=== PATIENT | female | born 1970 | race Caucasian/White ===

== ENCOUNTER 2019-08-18 02:58 | Inpatient (IN) | payer OTHER ==
[~2019-08-18] VITALS: Ht 154.9 cm; Wt 54.0 kg
[2019-08-18 03:10] VITALS: BP_SYST 125
[2019-08-18 03:28] LABS: BILIRUBIN,URINE NEGATIVE (NEGATIVE); BLOOD, URINE 1+ (NEGATIVE); CLARITY/URINE CLEAR (CLEAR); COLOR,URINE YELLOW (YELLOW); GLUCOSE,URINE NEGATIVE (NEGATIVE); KETONES,URINE NEGATIVE (NEGATIVE); LEUKOCYTE ESTERASE ,URINE 3+ (NEGATIVE); NITRITE, URINE POSITIVE (NEGATIVE); PH,URINE 7.5 (5.0-8.0); PROTEIN URINE 1+ (NEGATIVE); UROBILINOGEN,URINE 0.2 (0.2-1.0)
[2019-08-18] MEDS ORDERED: NACL 0.9% 1,000 ML IV ONE ×3 (03:31→07:15)
[2019-08-18 03:36] LABS: BACTERIA,URINE MANY /HPF (None Seen); WBC,URINE >100 /HPF (0-3)
[2019-08-18 03:37] LABS: BASOPHILS # (AUTO) 0.1 K/uL (0.0-0.2); BASOPHILS % (AUTO) 0.7 % (0.0-2.0); EOSINOPHILS # (AUTO) 0.3 K/uL (0.0-0.4); EOSINOPHILS % (AUTO) 2.5 % (0.0-4.0); HEMATOCRIT 35.4 % (36-48); HEMOGLOBIN 11.5 g/dL (12.0-16.0); LYMPHOCYTES # (AUTO) 1.2 K/uL (1.0-5.5); LYMPHOCYTES % (AUTO) 12.1 % (20.5-51.5); MEAN CORPUSCULAR HEMOGLOBIN 26 pg (27-31); MEAN CORPUSCULAR HGB CONC 32 % (32-36); MEAN CORPUSCULAR VOLUME 80 fL (79.0-98.0); MONOCYTES # (AUTO) 0.7 K/uL (0.0-1.0); MONOCYTES % (AUTO) 6.9 % (1.7-9.3); NEUTROPHILS % (AUTO) 77.8 % (40.0-70.0); PLATELET COUNT (AUTO) 179 K/uL (130-430); RED BLOOD CELL COUNT(AUTO) 4.41 MIL/uL (4.2-6.2); RED CELL DISTRIBUTION WIDTH 16.3 % (9.0-15.0); WHITE BLOOD COUNT (AUTO) 10.3 K/uL (4.8-10.8)
[2019-08-18] MEDS ORDERED: MORPHINE 4 MG/ML INJ. SYRINGE IVP ONE (03:45)
[2019-08-18] MEDS ORDERED: ONDANSETRON HCL 4 MG/2 ML VIAL IVP ONE (03:45)
[2019-08-18 03:47] LABS: CALCIUM 8.3 mg/dL (8.4-11.0); CREATININE 0.84 mg/dL (0.55-1.30); POTASSIUM 3.7 mmol/L (3.5-5.1)
[2019-08-18 03:49] LABS: PROTHROMBIN TIME 10.3 SECS (9.5-12.5)
[2019-08-18 03:52] LABS: ALBUMIN 3.3 g/dL (3.4-4.8); TOTAL BILIRUBIN 0.8 mg/dL (0.0-1.0)
[2019-08-18] MEDS ORDERED: KETOROLAC TROMETHAMINE 15 MG VIAL IVP PRN (05:30)
[2019-08-18] MEDS ORDERED: MORPHINE 4 MG/ML INJ. SYRINGE IVP PRN (05:30)
[2019-08-18] MEDS ORDERED: PIPERACILLIN/TAZO 3.375 GM in NS 50 ML IV ONE (05:30)
[2019-08-18] MEDS ORDERED: ONDANSETRON HCL 4 MG/2 ML VIAL IVP PRN (05:30)
[2019-08-18] MEDS ORDERED: PIPERACILLIN/TAZOBACTAM 3.375 GM/VIAL (ZOSYN) IV ONE (05:57)
[2019-08-18] MEDS ORDERED: ACETAMINOPHEN 325 MG TABLET PO ONE (06:30)
[2019-08-18 06:48] LABS: INFLUENZA A&B ANTIGEN SCREEN NEGATIVE FOR A & B (NEGATIVE); RESPIRATORY SYNCYTIAL VIRUS NEGATIVE (NEGATIVE); STREPTOCOCCUS A SCREEN (RAPID) NEGATIVE (NEGATIVE)
[2019-08-18 09:01] VITALS: BP_SYST 97
[2019-08-18] MEDS: NACL 0.9% 1,000 ML IV SCH ×3 (10:49→23:40)
[2019-08-18 12:00] VITALS: BP_SYST 111
[2019-08-18] MEDS ORDERED: PIPERACILLIN/TAZO 3.375 GM in NS 50 ML IV SCH ×4 (12:00)
[2019-08-18] MEDS: METOCLOPRAMIDE HCL 10 MG/2 ML VIAL IVP SCH ×3 (12:25→23:39)
[2019-08-18] MEDS: ACETAMINOPHEN 325 MG TABLET PO PRN (13:35)
[2019-08-18] MEDS: cefTRIAXone 1 GM in D5W 50 ML IV SCH (13:35)
[2019-08-18 16:00] VITALS: BP_SYST 96
[2019-08-18 19:26] LABS: OPIATE, URINE POSITIVE (NEG <=100); UR TRICYCLIC ANTIDEPRESSANTS NEGATIVE (NEG <=300); URINE OXYCODONE SCREEN NEGATIVE (NEG <=100); URINE PROPOXYPHENE SCREEN NEGATIVE (NEG <=300)
[2019-08-18 19:27] LABS: BARBITURATE, URINE NEGATIVE (NEG <=200); BENZODIAZEPINE, URINE NEGATIVE (NEG <=150); CANNABINOID, URINE NEGATIVE (NEG <=50); COCAINE, URINE NEGATIVE (NEG <=150); METHAMPHETAMINES SCREEN,URINE NEGATIVE (NEG <=500); PHENCYCLIDINE SCREEN,URINE NEGATIVE (NEG <=25); URINE AMPHETAMINE NEGATIVE (NEG <=500); URINE METHADONE NEGATIVE (NEG <=200)
[2019-08-18 20:00] VITALS: BP_SYST 109
[2019-08-18] MEDS: metroNIDAZOLE 500 mg/NS 100 ML IV SCH (22:09)
[2019-08-19 01:04] VITALS: BP_SYST 104
[2019-08-19] MEDS: METOCLOPRAMIDE HCL 10 MG/2 ML VIAL IVP SCH ×3 (05:31→17:59)
[2019-08-19 05:51] LABS: ALBUMIN 2.3 g/dL (3.4-4.8); CALCIUM 7.3 mg/dL (8.4-11.0); CREATININE 0.73 mg/dL (0.55-1.30); POTASSIUM 3.4 mmol/L (3.5-5.1); TOTAL BILIRUBIN 0.6 mg/dL (0.0-1.0)
[2019-08-19 07:05] LABS: BASOPHILS % (AUTO) 0.3 % (0.0-2.0); EOSINOPHILS % (AUTO) 0.2 % (0.0-4.0); HEMATOCRIT 30.6 % (36-48); HEMOGLOBIN 10.1 g/dL (12.0-16.0); LYMPHOCYTES # (AUTO) 0.9 K/uL (1.0-5.5); LYMPHOCYTES % (AUTO) 9.9 % (20.5-51.5); MEAN CORPUSCULAR HEMOGLOBIN 27 pg (27-31); MEAN CORPUSCULAR HGB CONC 33 % (32-36); MEAN CORPUSCULAR VOLUME 80 fL (79.0-98.0); MONOCYTES # (AUTO) 0.8 K/uL (0.0-1.0); NEUTROPHILS # (AUTO) 7.5 K/uL (1.8-7.7); NEUTROPHILS % (AUTO) 80.6 % (40.0-70.0); PLATELET COUNT (AUTO) 148 K/uL (130-430); RED BLOOD CELL COUNT(AUTO) 3.82 MIL/uL (4.2-6.2); RED CELL DISTRIBUTION WIDTH 16.2 % (9.0-15.0); WHITE BLOOD COUNT (AUTO) 9.3 K/uL (4.8-10.8)
[2019-08-19 08:01] VITALS: BP_SYST 99
[2019-08-19] MEDS: metroNIDAZOLE 500 mg/NS 100 ML IV SCH ×2 (09:36→20:43)
[2019-08-19] MEDS: NACL 0.9% 1,000 ML IV SCH ×2 (09:36→20:43)
[2019-08-19] MEDS: cefTRIAXone 1 GM in D5W 50 ML IV SCH (11:56)
[2019-08-19] MEDS ORDERED: POTASSIUM CHLORIDE 40 MEQ, LIDOCAINE JECT 2% PF 100 MG 50 MG in NS 250 ML IV ONE (12:00)
[2019-08-19] MEDS: ACETAMINOPHEN 325 MG TABLET PO PRN (12:18)
[2019-08-19 12:32] VITALS: BP_SYST 110
[2019-08-19 16:23] VITALS: BP_SYST 119
[2019-08-19 20:00] VITALS: BP_SYST 116
[2019-08-20] MEDS: METOCLOPRAMIDE HCL 10 MG/2 ML VIAL IVP SCH ×3 (00:05→12:00)
[2019-08-20 01:16] VITALS: BP_SYST 114
[2019-08-20] MEDS: ACETAMINOPHEN 325 MG TABLET PO PRN (01:55)
[2019-08-20] MEDS: NACL 0.9% 1,000 ML IV SCH (06:32)
[2019-08-20] MEDS: metroNIDAZOLE 500 mg/NS 100 ML IV SCH (08:44)
[2019-08-20 12:21] VITALS: BP_SYST 114
[2019-08-20 12:37] VITALS: BP_SYST 125
[2019-08-20] MEDS: cefTRIAXone 1 GM in D5W 50 ML IV SCH (13:00)
[2019-08-20] MEDS ORDERED: FLA250 PO (13:28)
[2019-08-20] MEDS ORDERED: LEVO500T89 PO (13:29)
[2019-08-20] MEDS ORDERED: LACT1POW8 MC (13:31)
== END 2019-08-20 14:00 | disposition home or self-care (01) | DRG 690 ==
LOC: SED 02:58 → SMU 05:35
PROVIDERS: ADMIT Internal Medicine; ATTEND Internal Medicine
DX: N13.6 Pyonephrosis (principal); K76.9 Liver disease, unspecified; D25.9 Leiomyoma of uterus, unspecified; J20.9 Acute bronchitis, unspecified
CPT/HCPCS: 36415; 71045; 80053; 80307; 81000-TC; 81025; 82105; 82150-TC; 83605; 83690-TC; 84703; 85025; 85610-TC; 86403; 86710; 87040-TC; 87081; 87086; 87177; 87186-TC; 87420; 89055; 96361; 96365; 96375; 99285; J0696; J2270; J2405; J2543; J2765; J3480; J3490; J7030; J7050; J7060